=== PATIENT | male | born 1980 | race Caucasian/White ===

== ENCOUNTER 2018-11-26 07:55 | Emergency (ER) | payer OTHER ==
[~2018-11-26] VITALS: Ht 182.9 cm; Wt 104.5 kg
[2018-11-26] MEDS ORDERED: LISI20TA3 PO (08:00)
[2018-11-26] MEDS ORDERED: CVS1CAP2 PO (08:00)
[2018-11-26] MEDS ORDERED: OMEP40CA2 PO ×2 (08:00→08:01)
[2018-11-26] MEDS ORDERED: LISI20TA PO (08:01)
[2018-11-26] MEDS ORDERED: KETOROLAC 60 MG/2 ML VIAL (J1885) IM ONE (08:30)
--- NOTE | 2018-11-26 08:48 | REP ---
Clinical: Trauma. Technique: AP view of the pelvis with neutral and frog lateral views of the left hip. Findings: No obvious acute fracture dislocation. Minimal age-related changes are appreciated including increased sclerosis to the acetabular roof with subtle marginal spurring. No acute fracture or dislocation. Impression: Mild degenerative changes. Electronically Signed by Jose Johnson MD 11/26/2018 08:40 A
[2018-11-26] MEDS ORDERED: NAPR-837 PO (09:21)
[2018-11-26 09:53] VITALS: BP 127/71
== END 2018-11-26 10:02 | disposition home or self-care (01) ==
LOC: M ED 08:27
DX: S76.012A Strain of muscle, fascia and tendon of left hip, initial encounter (principal); W01.0XXA Fall on same level from slipping, tripping and stumbling without subsequent striking against object, initial encounter; Y92.008 Other place in unspecified non-institutional (private) residence as the place of occurrence of the external cause; Z79.899 Other long term (current) drug therapy; Z88.5 Allergy status to narcotic agent
CPT/HCPCS: 73502; 96372; 99284; J1885